=== PATIENT | female | born 1935 | race Caucasian/White ===

== ENCOUNTER 2019-03-21 18:30 | Inpatient (IN) | payer MEDICAID, MEDICARE ==
[~2019-03-21] VITALS: Ht 170.2 cm; Wt 75.0 kg
[2019-03-21 19:04] LABS: HEMATOCRIT 27.7 % (36.0-47.0); MEAN CORPUSCULAR HEMOGLOBIN 21.3 pg (27.0-33.0); MEAN CORPUSCULAR HGB CONC 28.9 g/dl (32.0-36.5); MEAN CORPUSCULAR VOLUME 73.7 fl (80.0-96.0); PLATELET COUNT, AUTOMATED 596 10^3/uL (150-450); RED BLOOD COUNT 3.76 10^6/uL (4.00-5.40); WHITE BLOOD COUNT 7.2 10^3/uL (4.0-10.0)
[2019-03-21 19:22] LABS: ANISOCYTOSIS 1+; HYPOCHROMASIA 2+; LYMPHOCYTES 18 % (16-44); METAMYELOCYTES 1 % (0-0); MONOCYTES 2 % (0-5); NEUTROPHILS 62 % (28-66); POIKILOCYTOSIS 2+
[2019-03-21 19:23] LABS: MICROCYTOSIS 1+; POLYCHROMASIA 1+; SCHISTOCYTES 1+
[2019-03-21 19:24] LABS: ALBUMIN 2.1 GM/DL (3.2-5.2); ALT/SGPT 20 U/L (12-78); BILIRUBIN,DIRECT 0.2 MG/DL (0.0-0.2); BILIRUBIN,TOTAL 0.4 MG/DL (0.2-1.0); BLOOD UREA NITROGEN 20 MG/DL (7-18); CALCIUM LEVEL 8.6 MG/DL (8.8-10.2); CARBON DIOXIDE LEVEL 19 MEQ/L (21-32); CHLORIDE LEVEL 106 MEQ/L (98-107); CREATININE FOR GFR 1.34 MG/DL (0.55-1.30); GLOMERULAR FILTRATION RATE 40.4 (>32); GLUCOSE, FASTING 110 MG/DL (70-100); LIPASE 185 U/L (73-393); PLATELET ESTIMATE INCREASED (NORMAL); POTASSIUM SERUM 3.4 MEQ/L (3.5-5.1); SODIUM LEVEL 141 MEQ/L (136-145); TOTAL PROTEIN 6.6 GM/DL (6.4-8.2)
[2019-03-21 19:25] LABS: OVALOCYTES 1+
[2019-03-21] MEDS ORDERED: NS 2,250 ML in IV 1 EA IV ONE (20:00)
[2019-03-21] MEDS ORDERED: ISOVUE-370 76% 100ML VIAL (Q9967) As Ordered ONE (20:04)
[2019-03-21] MEDS ORDERED: ONDANSETRON 4MG/2ML VIAL (J2405) IV ONE ×2 (20:15→22:00)
[2019-03-21 20:34] LABS: INR 1.33; PROTHROMBIN TIME 16.2 SECONDS (11.8-14.0)
[2019-03-21 20:35] LABS: PARTIAL THROMBOPLASTIN TIME 26.6 SECONDS (25.0-38.4)
[2019-03-21 20:43] LABS: CK-MB VALUE MASS 1.2 NG/ML (<3.6); CPK CREATINE PHOSPHOKINASE 64 U/L (26-192); MB/CK RELATIVE INDEX 1.88 (< OR =4); NT-PRO BNP 630 PG/ML (<450); TROPONIN I < 0.02 NG/ML (< 0.10)
[2019-03-21] MEDS ORDERED: PIPERACILLIN/TAZOBACTAM SOD 3.375 GM in D5W MINI-BAG PLUS 50 ML IV ONE (21:00)
--- NOTE | 2019-03-21 21:06 | REPVR ---
PROCEDURE INFORMATION: Exam: CT Angiography Chest With Contrast Exam date and time: 03/21/2019 8:20 PM Clinical history: 83 years old, female; Other: Hypotension; Additional info: Abd pain, hypotension, ? aaa TECHNIQUE: Imaging protocol: Computed tomographic angiography of the chest with intravenous contrast. 3D rendering: MIP reconstructed images were created and reviewed. Radiation optimization: All CT scans at this facility use at least one of these dose optimization techniques: automated exposure control; mA and/or kV adjustment per patient size (includes targeted exams where dose is matched to clinical indication); or iterative reconstruction. Contrast material: ISOVUE 370; Contrast volume: 100 ml; Contrast route: IV; COMPARISON: No relevant prior studies available. FINDINGS: Pulmonary arteries: Normal. No pulmonary emboli. Aorta: Unremarkable. No aortic aneurysm. No aortic dissection. Lungs: Mild bibasilar atelectasis. No air space consolidation or masses. Airways are clear. Pleural space: Large right pleural effusion and small left pleural effusion. Heart: Unremarkable. No cardiomegaly. No pericardial effusion. Mediastinum: Moderate sized hiatal hernia with some reflux fluid in the esophagus. Lymph nodes: Unremarkable. No enlarged lymph nodes. Bones/joints: Unremarkable. No acute fracture. Soft tissues: Unremarkable. IMPRESSION: 1. Large right pleural effusion and smaller left pleural effusion. 2. Moderate size hiatal hernia with reflux fluid in the esophagus. Electronically signed by: Burt Leonard On 03/21/2019 21:06:52 PM
[2019-03-21] MEDS ORDERED: fentaNYL 100 MCG/2 ML INJECTION (J3010) IV ONE (21:15)
--- NOTE | 2019-03-21 21:16 | REPVR ---
PROCEDURE INFORMATION: Exam: CT Abdomen And Pelvis With Contrast Exam date and time: 03/21/2019 8:20 PM Clinical history: 83 years old, female; Abdominal pain; Generalized; Additional info: Abd pain, hypotension, ? aaa TECHNIQUE: Imaging protocol: Computed tomography of the abdomen and pelvis with intravenous contrast. 3D rendering: MIP reconstructed images were created and reviewed. Radiation optimization: All CT scans at this facility use at least one of these dose optimization techniques: automated exposure control; mA and/or kV adjustment per patient size (includes targeted exams where dose is matched to clinical indication); or iterative reconstruction. Contrast material: ISOVUE 370; Contrast volume: 100 ml; Contrast route: IV; COMPARISON: No relevant prior studies available. FINDINGS: Pleural space: Large right pleural effusion smaller left pleural effusion. Mediastinum: Moderate sized hiatal hernia. Liver: 2.6 cm mass in the left lobe of the liver. No other liver masses. Gallbladder and bile ducts: Multiple calculi in the gallbladder. Mild pericholecystic fluid. Pancreas: There is a large irregular heterogeneous lobulated mass in the head and body of the pancreas measuring 5.9 x 7.2 x 4.7 cm. The pancreatic tail is atrophic. No pancreatic duct dilation. The pancreatic head mass is also not separable from the adjacent duodenum. Spleen: Normal. No splenomegaly. Adrenals: Normal. No mass. Kidneys and ureters: There are cysts in the right kidney. Kidneys are otherwise unremarkable. No hydronephrosis. Stomach and bowel: A portion of the pancreatic head mass extends laterally to the involve a portion of the ascending colon. The involved segment of descending and transverse colon is thickwalled and edematous. No colonic obstruction. No inflammatory changes in the colon. Moderate sigmoid diverticulosis. No duodenal obstruction. Appendix: No evidence of appendicitis. Intraperitoneal space: Moderate ascites in the abdomen and pelvis. Vasculature: The pancreatic head mass appears to encase and may obstruct the portal vein. The mass abuts branches of the celiac and superior mesenteric arteries. The main trunk of both arteries are patent. The gastroduodenal artery is encased and obstructed. At least one small SMA branches also encased by the mass. Aorta is normal size. No aneurysm or dissection. Lymph nodes: Adenopathy in the small bowel mesentery. Bladder: Unremarkable as visualized. Reproductive: Unremarkable as visualized. Bones/joints: There are degenerative changes in the spine and pelvis. Severe central spinal canal stenosis at L3-4. Soft tissues: Unremarkable. IMPRESSION: 1. Large irregular pancreatic head mass encasing branches of the SMA and celiac arteries and the portal vein which may be occluded. The mass also extends laterally to invade the adjacent colon at the hepatic flexure. Associated adenopathy in the mesentery. Possible liver metastasis. 2. Large-volume ascites. 3. Colonic diverticulosis. 4. Cholelithiasis. Cholecystic fluid may be related to ascites or cholecystitis. 5. Severe central spinal stenosis at L3-4. COMMENT: Consistent with the [employer]'s Incidental Findings Committee Report (J Am Pati Radiol 2010): Unless the patient's specific circumstances suggest otherwise, any liver lesion 0.5 cm or less, any cystic kidney lesion less than 1.0 cm, and/or any adrenal lesion 1.0 cm or less not otherwise characterized in this report as possessing suspicious or indeterminate imaging features is/are highly likely to be benign and do not require follow-up imaging or biopsy. Electronically signed by: Burt Leonard On 03/21/2019 21:16:36 PM
[2019-03-21] MEDS: MORPHINE 4 MG/ML 1ML VIAL/SYRINGE (J2270) IV PRN ×2 (22:13→22:44)
[2019-03-21] MEDS ORDERED: NS 1,000 ML IV SCH (22:45)
[2019-03-21] MEDS ORDERED: MORPHINE 4 MG/ML 1ML VIAL/SYRINGE (J2270) IV PRN (22:45)
[2019-03-21] MEDS ORDERED: ONDANSETRON 4MG/2ML VIAL (J2405) IV PRN (22:45)
[2019-03-21] MEDS ORDERED: MAALOX 30 ML SUSP *UDC PO PRN (22:45)
[2019-03-21] MEDS ORDERED: ACETAMINOPHEN TAB 650MG DOSE (2X325MG) PO PRN (22:45)
[2019-03-21] MEDS ORDERED: MOM 30ML SUSPENSION UDC PO PRN (22:45)
--- NOTE | 2019-03-21 23:00 | HPEPDOC ---
General Date of Admission 03/21/19 Date of Service: Mar 21, 2019 Chief Complaint The patient is a 83-year-old female admitted with a reason for visit of N/V. Source: Patient, RN/MD Timing/Duration: Other Severity: Moderate Associated Symptoms: Nausea, Vomiting History of Present Illness 83 years old white female with apparently no past medical history has not seen doctors in decades presented in ER with chief complaints of nausea, vomiting since this afternoon. No other complaints. Patient was found to have a large pancreatic mass with possible liver metastases and will recall in for admission. Patient is poor historian granddaughter who takes care of for is not available. She just left the building Home Medications No Active Prescriptions or Reported Meds Allergies Coded Allergies: No Known Allergies (Verified Allergy, Unknown, 03/21/19) Past Medical History Medical History None Surgical History None Family History Significant Family History: No pertinent family hx Social History * Smoker: Denies Alcohol: Denies Drugs: denies A-FIB/CHADSVASC A-FIB History Current/History of A-Fib/PAF?: No Review of Systems Constitutional: Denies: Chills, Fever, Malaise, Night Sweats, Weakness, Fatigue, Weight Loss, Lethargy, Other Eyes: Denies: Pain, Vision change, Conjunctivae inflammation, Eyelid inflammation, Redness, Other ENT: Denies: Head Aches, Ear Pain, Dysphagia, Sinus Congestion, Post Nasal Drip, Sore Throat, Epistaxis, Other Symptoms Skin: Denies: Rash, Lesions, Jaundice, Bruising, Itching, Dry, Breakdown, Nail Changes, Other Pulmonary: Denies: Dyspnea, Cough, Pleuritic Chest Pain, Other Symptoms Cardiovascular: Denies: Chest Pain, Palpitations, Orthopnea, Paroxysmal Noc. Dyspnea, Edema, Lt Headedness, Other Symptoms Gastrointestinal: Reports: Nausea, Vomiting Genitourinary: Denies: Dysuria, Frequency, Incontinence, Hematuria, Retention, Other Symptoms Hematologic: Denies: Bruising, Bleeding Excessively, Petecchia, Purpura, Enlarged Lymph Nodes, Other Hematologic Endocrine: Denies: Polydipsia, Polyphagia, Polyuria, Heat Intolerance, Cold Intolerance, Other Endocrine Sx Musculoskeletal: Denies: Neck Pain, Back Pain, Shoulder Pain, Arm Pain, Hand Pain, Leg Pain, Foot Pain, Joint Pain, Muscle Pain, Spasms, Other Symptoms Neurological: Denies: Weakness, Numbness, Incoordination, Change in speech, Confusion, Seizures, Other Symptoms Psych: Denies: Mood Normal, Anxiety, Depression, Memory Issues, Thoughts of Self Harm, Anger, Thoughts of Harming Other, Other Psych Physical Examination General Exam: Positive: Alert, Cooperative Eye Exam: Positive: PERRLA, Conjunctiva & lids normal ENT Exam: Positive: Atraumatic, Mucous membr. moist/pink Neck Exam: Positive: Supple Chest Exam: Positive: Clear to auscultation Heart Exam: Positive: Rate Normal, Normal S1 Abdomen Exam: Positive: Normal bowel sounds, Soft, Tenderness (questionable tenderness epigastric area) Extremity Exam: Positive: Normal pulses Skin Exam: Positive: Nl turgor and temperature Neuro Exam: Positive: Normal Gait, Strength at 5/5 X4 ext, Sensation Intact Vital Signs Vital Signs Date Time Temp Pulse Resp B/P (MAP) Pulse Ox O2 Delivery O2 Flow Rate FiO2 03/21/19 22:31 17 03/21/19 21:15 117 105/56 (72) 94 03/21/19 18:41 99.0 Laboratory Data Labs 24H Laboratory Tests 2 03/21/19 18:55: Prothrombin Time 16.2H, Prothromb Time International Ratio 1.33, Activated Partial Thromboplast Time 26.6, Lactic Acid Level 12.4*H 03/21/19 18:56: Nucleated Red Blood Cells % (auto) 0.0, Neutrophils 62, Band Neutrophils 17H, Lymphocytes (Manual) 18, Monocytes (Manual) 2, Metamyelocytes 1H, Platelet Estimate INCREASED, Polychromasia 1+, Hypochromasia 2+, Poikilocytosis 2+, Anisocytosis 1+, Microcytosis 1+, Ovalocytes 1+, Acanthocytes 1+, Schistocytes 1+, Anion Gap 16, Glomerular Filtration Rate 40.4, Calcium Level 8.6L, Aspartate Amino Transf (AST/SGOT) 35, Alanine Aminotransferase (ALT/SGPT) 20, Alkaline Phosphatase 177H, Total Bilirubin 0.4, Direct Bilirubin 0.2, Total Creatine Kinase 64, Creatine Kinase MB 1.2, Creatine Kinase MB Relative Index 1.88, Troponin I < 0.02, MU-Prt-R-Type Natriuretic Peptide 630H, Total Protein 6.6, Albumin 2.1L, Albumin/Globulin Ratio 0.47L, Lipase 185 CBC/BMP Laboratory Tests 10/10/19 18:56 Red Blood Count 3.76 L, Mean Corpuscular Volume 73.7 L, Mean Corpuscular Hemoglobin 21.3 L, Mean Corpuscular Hemoglobin Concent 28.9 L, Red Cell Distribution Width 19.2 H Problems (1) Pancreatic mass Status: Acute Problem Text: 83 years old white female with no past medical history has not seen a doctor in decades came with the chief complaint of nausea, vomiting. On further workup, had a CT of the abdomen done which shows large irregular pancreatic head mass encompassing branches of SMA and celiac arteries and portal vein which is occluded mass also extends laterally to invade the edges sent: At the hepatic flexure. Associated adenopathy and mesenteric. Large volume ascites. Colonic diverticulosis. Cholelithiasis and severe central spinal stenosis . Also, patient seemed to have metastatic disease in the liver on CAT scan Admit patient to MedSurg floor IV fluids normal saline 150 mL per hour Pain management with morphine sulfate 30 per orders Nothing by mouth except meds Patient's prognosis is very poor and terminal Patient will probably benefit from hospice consult as soon as possible Patient was seen by surgical team and recommended medical management secondary to terminal status DNR/DNI. Obtained DVT prophylaxis not needed secondary to terminal condition Bed rest with bathroom privileges Plan / VTE VTE Prophylaxis Ordered?: No VTE Exclusion Mechanical Proph: Other VTE Exclusion Pharmacological: Other (terminal condition and mental condition) AURORA MAYES MD Mar 21, 2019 23:00
[2019-03-22] VITALS: BP 81/50
[2019-03-22 01:11] VITALS: BP 70/40
[2019-03-22] MEDS ORDERED: NS 500 ML IV ONE (01:30)
[2019-03-22 06:15] VITALS: BP 83/49
--- NOTE | 2019-03-22 07:43 | ECGEPIP ---
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
[2019-03-22] MEDS ORDERED: DOCUSATE SODIUM 100 MG CAP PO SCH (09:00)
[2019-03-22] MEDS ORDERED: PREVNAR 13 VACCINE SYRINGE (CPT CODE:90670) IM ONE (09:00)
[2019-03-22] MEDS ORDERED: FLUBLOK(EGG FREE)(QUAD)INFLUENZA VACC 0.5ML SYRINGE (90682)18YRS&OLDER IM ONE (09:00)
--- NOTE | 2019-03-22 11:37 | IPNPDOC ---
Date Seen The patient was seen on 03/22/19. Progress Note SUBJECTIVE: Patient was seen and examined this morning. Patient states that her nausea has subsided somewhat, however, she still continues to have abdominal pain. Patient's family was present and was made aware of the CT findings of an irregular pancreatic mass encompassing the branch of the SMA and celiac arteries and portal vein. Given the patients findings a discussion regarding comfort care has been initiated. The patient and her family state that they have family flying in from [place]. They states that they plan on making a decision at the time. The patient states that currently she has no difficulty breathing or chest pain. She does complain of some mild dysuria and abdominal pain. OBJECTIVE PHYSICAL EXAMINATION: VITAL SIGNS: Please see below. GENERAL: Awake, alert, and oriented. Appears in no acute distress. Lying comfortably in bed. She is pleasant HEENT: Atraumatic, normocephalic. Eyes are nonicteric. Trachea is midline. No JVD CARDIOVASCULAR: Normal S1, S2. Regular, rate and rhythm. No clicks, rubs, or murmurs. RESPIRATORY: Clear vesicular breath sounds bilaterally. Decreased in the bases bilaterally. No wheezes, rhonchi, or rales ABDOMINAL: Soft, nondistended. Tenderness to palpation of the LLQ and RLQ. Positive bowel sounds in all 4 quadrants EXTREMITIES: No edema. Full and equal pulses in bilateral upper and lower extremities NEUROLOGICAL: No focal neurological deficits PSYCHOLOGICAL: Mood and affect appear appropriate LABORATORY DATA, IMAGING STUDIES, MICROBIOLOGY: Please see below. ASSESSMENT AND PLAN: Patient is an 83-year-old female who presented to [facility] with complaint of nausea, vomiting, abdominal pain. Patient recei kimberly a CT of the abdomen and pelvis in the emergency department which revealed a large irregular pancreatic head mass encasing branches of the superior mesenteric artery and celiac arteries in the portal vein with possible occlusion. The mass also extends laterally to the adjacent colon, hepatic flex ure, and associated adenopathy in the mesentery with possible liver metastasis.. Additionally, the patient's found to have large volume ascites. Patient received a CT angiogram which demonstrated a large right-sided pleural effusion with a smaller left-sided pleural effusion and a moderate size hiatal hernia and reflux fluid in the esophagus. General surgery was made aware the case and recommended medical management secondary to terminal status. Patient is currently DNR/DNI. Family and patient has been made aware of the situation and are currently awaiting additional family members arrive from [place] for consideration of comfort measures only care. PROBLEMS: 1. 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 This. Mesenteric artery and celiac arteries as well as the portal vein with possible occlusion. The mass was noted to extend laterally to the adjacent colon, hepatic flexure hepatic flexure, with associated adenopathy in the mesentery and possibly liver metastasis. -This is likely of malignant origin However, this cannot be confirmed without biopsy. -General surgery was contacted when the patient is admitted to the ER and suggested medical management as patient likely has terminal status. At this point. Patient has not determined whether she will be comfort only. Therefore, will recheck out to Gen. surgery for recommendations. 2. CT finding of several small foci of free air in the abdomen, located on the pancreatic head, periportal region, and dome of the liver possibly related to invasion by pancreatic head mass -As stated above patient has possible free air related to colonic invasion from her pancreatic mass. General Surgery will be contacted for recommendations. The patient is likely a poor surgical candidate given the extent of her disease. Patient and her family are aware and are considering TAPPER BIT. -Hospice consult has been placed 3. Lactic Acidosis -Patient is hypotensive, she has a pancreatic head mass surrounding the SMA and celiac arteries. Patient is continued on IV fluids at a rate of 150ml/hr 4. Pleural Effusion -Patient has bilateral pleural effusions possibly secondary to malignancy. She currently denies any shortness of breath. 5. Abdominal Ascites -Likely secondary to possible malignancy. Patient is receiving IV fluids due to hypotension and lactic acidosis. This may worsen her abdominal ascites and pleural effusions. 6. Sepsis -Patient presented with lactic acid of 12.4, hypotension, and evidence of free air in the abdomen. She is been placed on IV NS. Patient received Zosyn in the ER. Patient is currently TAPPER BIT status. DISPOSITION: Patient has an overall poor prognosis. She has a large irregular pancreatic mass with extensive involvement including encasement of the superior mesenteric artery and celiac arteries and portal vein with possible thrombosis. Additionally, there is involvement of the colon at the hepatic flexure with small foci of air suggesting possible perforation. Surgical services is aware the case, however, given the patient's prognosis currently recommends medical management. Patient and her family have asked for comfort measures only care. VS, I&O, 24H, [place] Vital Signs/I&O Vital Signs Date Time Temp Pulse Resp B/P (MAP) Pulse Ox O2 Delivery O2 Flow Rate FiO2 03/22/19 06:15 98.6 101 18 83/49 (60) 99 4.0 03/21/19 23:00 Room Air I&O- Last 24 Hours up to 6 AM 03/22/19 06:00 Intake Total 2100 ml Output Total 100 ml Balance 2000 ml Laboratory Data 24H LABS Laboratory Tests 2 03/21/19 18:55: Prothrombin Time 16.2H, Prothromb Time International Ratio 1.33, Activated Partial Thromboplast Time 26.6, Lactic Acid Level 12.4*H 03/21/19 18:56: Nucleated Red Blood Cells % (auto) 0.0, Neutrophils 62, Band Neutrophils 17H, Lymphocytes (Manual) 18, Monocytes (Manual) 2, Metamyelocytes 1H, Platelet Estimate INCREASED, Polychromasia 1+, Hypochromasia 2+, Poikilocytosis 2+, Anisocytosis 1+, Microcytosis 1+, Ovalocytes 1+, Acanthocytes 1+, Schistocytes 1+, Anion Gap 16, Glomerular Filtration Rate 40.4, Calcium Level 8.6L, Aspartate Amino Transf (AST/SGOT) 35, Alanine Aminotransferase (ALT/SGPT) 20, Alkaline Phosphatase 177H, Total Bilirubin 0.4, Direct Bilirubin 0.2, Total Creatine Kinase 64, Creatine Kinase MB 1.2, Creatine Kinase MB Relative Index 1.88, Tropo ezra I < 0.02, IB-Kew-T-Type Natriuretic Peptide 630H, Total Protein 6.6, Albumin 2.1L, Albumin/Globulin Ratio 0.47L, Lipase 185 03/21/19 20:57: POC pH (Misc Panel) 7.437, POC Base Excess (Misc Panel) -10.0L, POC Saturated Percent O2 (Misc) 91L, POC pO2 (Misc Panel) 57.0L, POC pCO2 (Misc Panel) 21.5L, POC HCO3 (Misc Panel) 14.5L, POC Total CO2 (Misc Panel) 15.0L 03/22/19 00:43: Lactic Acid Followup at 4 Hours 7.4*H CBC/BMP Laboratory Tests 03/21/19 18:56 Red Blood Count 3.76 L, Mean Corpuscular Volume 73.7 L, Mean Corpuscular Hem oglobin 21.3 L, Mean Corpuscular Hemoglobin Concent 28.9 L, Red Cell Distribution Width 19.2 H GME ATTESTATION GME ATTESTATION My faculty preceptor for this patient encounter was physically present during the encounter and was fully available. All aspects of the patient interview, examination, medical decision making process, and medical care plan development were reviewed and approved by the faculty preceptor. The faculty preceptor is aware and concurs with the plan as stated in the body of this note and will attest to such by his/her cosignature. ATTENDING NOTE I, Alex Mcmullen, have independently examined this patient and performed my own physical exam, as well as reviewed the documentation and edited where necessary. I have discussed in detail with the resident / student the findings and plan of treatment as documented by the resident / student and edited their note. I agree with their findings and treatment plan and have edited their documentation. I will continue to follow the patient during this hospital stay. HEDY BENITO DO Mar 22, 2019 11:37 ALEX MCMULLEN MD Mar 26, 2019 17:47
[2019-03-22] MEDS ORDERED: ONDANSETRON 4MG/2ML VIAL (J2405) IV PRN (12:00)
[2019-03-22] MEDS ORDERED: LORazepam 2 MG/ML VIAL (J2060) IV PRN (12:00)
[2019-03-22] MEDS ORDERED: SCOPOLAMINE 1MG TRANSDERMAL PATCH TOP PRN (12:00)
[2019-03-22] MEDS ORDERED: MORP20SO3 PO ×3 (13:48→14:14)
[2019-03-22] MEDS ORDERED: LORA0.5T5 PO ×3 (13:48→14:14)
[2019-03-22] MEDS ORDERED: ACET1TAB55 PO ×3 (13:48→14:14)
[2019-03-22] MEDS ORDERED: HYOS125TA PO ×3 (13:48→14:14)
[2019-03-22] MEDS ORDERED: COLA100C5 PO ×3 (13:48→14:14)
[2019-03-22] MEDS ORDERED: FLEET ENEMA PR PRN (14:00)
[2019-03-22] MEDS ORDERED: ZOFR4TAB16 PO ×2 (14:06→14:14)
--- NOTE | 2019-03-22 15:15 | DS.PDOC ---
Discharge Summary General Date of Admission Mar 21, 2019 at 22:45 Date of Discharge 03/22/19 Attending Physician: ALEX DAVIS MD Discharge Summary PROCEDURES PERFORMED DURING STAY: [None]. ADMITTING DIAGNOSES: 1. 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 Sepsis with lactic acidosis 3. Bilateral pleural effusion 4. Abdominal ascites 5. Free air in the abdomen secondary to colonic invasion by pancreatic head mass DISCHARGE DIAGNOSES: 1. 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 Sepsis with lactic acidosis 3. Bilateral pleural effusion - possibly 2/2 malignant effusion 4. Abdominal ascites - possibly 2/2 malignant ascites 5. Free air in the abdomen - likely secondary to colonic invasion by pancreatic head mass COMPLICATIONS/CHIEF COMPLAINT: Pancreatic Mass. HISTORY OF PRESENT ILLNESS: Patient is an 83-year-old female who presented to [facility] emergency department with complaint of nausea, vomiting, and abdominal pain. She received a CT of the abdomen and pelvis which revealed a large irregular pancreatic head mass encasing branches of the mesenteric artery and celiac arteries and also portal vein with possible occlusion. The mass is found to be extending lateral to the adjacent colon, hepatic flexure, with associated adenopathy in the mesentery and possible liver metastasis. The patients CT findings demonstrated several small foci of free air in the abdomen, located on the pancreatic head periportal region and dome of the liver. Patient was additionally found to have a large volume abdominal ascites as well as bilateral pleural effusions. General surgery was contacted with recommendations to proceed only with medical intervention as patient was a poor surgical candidate. There is far. The patient was found to be tachycardic and hypotensive with an elevated lactic acid. Patient was admitted to hospital service for further evaluation and management On admission the patient was continued on IV fluids due to hypotension. The patient and her family were made aware of the CT findings and prognosis. Patient and her family came to agreement for comfort measure only care and hospice consult was placed and the patient was accepted to hospice DISCHARGE MEDICATIONS: Please see below. ALLERGIES: Please see below. PHYSICAL EXAMINATION ON DISCHARGE: VITAL SIGNS: Please see below. GENERAL: Awake, alert, and oriented. Appears in no acute distress. Lying comfortably in bed. She is pleasant HEENT: Atraumatic, normocephalic. Eyes are nonicteric. Trachea is midline. No JVD CARDIOVASCULAR: Normal S1, S2. Regular, rate and rhythm. No clicks, rubs, or murmurs. RESPIRATORY: Clear vesicular breath sounds bilaterally. Decreased in the bases bilaterally. No wheezes, rhonchi, or rales ABDOMINAL: Soft, nondistended. Tenderness to palpation of the LLQ and RLQ. Positive bowel sounds in all 4 quadrants EXTREMITIES: No edema. Full and equal pulses in bilateral upper and lower extremities NEUROLOGICAL: No focal neurological deficits LABORATORY DATA: Please see below. IMAGING: ADDENDUM REPORT 1 Several small foci of free air also noted in the abdomen, many located around the pancreatic head, periportal region, and dome of the liver, possibly related to invasion of the colon by the pancreatic head mass. THIS REPORT CONTAINS FINDINGS THAT MAY BE CRITICAL TO PATIENT CARE. The findings were verbally communicated via telephone conference with HEDY JONES at 9:22 PM EDT on 03/21/2019. The findings were acknowledged and understood. Electronically signed by: Burt Garcia On 03/21/2019 21:23:11 PM DD: BURT GARCIA MD 03/21/192019 DT: KENNEDY 03/21/192122 DS: SONNY 03/21/192122 PROCEDURE INFORMATION: Exam: CT Abdomen And Pelvis With Contrast Exam date and time: 03/21/2019 8:20 PM Clinical history: 83 years old, female; Abdominal pain; Generalized; Additional info: Abd pain, hypotension, ? aaa TECHNIQUE: Imaging protocol: Computed tomography of the abdomen and pelvis with intravenous contrast. 3D rendering: MIP reconstructed images were created and reviewed. Radiation optimization: All CT scans at this facility use at least one of these dose optimization techniques: automated exposure control; mA and/or kV adjustment per patient size (includes targeted exams where dose is matched to clinical indication); or iterative reconstruction. Contrast material: ISOVUE 370; Contrast volume: 100 ml; Contrast route: IV; COMPARISON: No relevant prior studies available. FINDINGS: Pleural space: Large right pleural effusion smaller left pleural effusion. Mediastinum: Moderate sized hiatal hernia. Liver: 2.6 cm mass in the left lobe of the liver. No other liver masses. Gallbladder and bile ducts: Multiple calculi in the gallbladder. Mild pericholecystic fluid. Pancreas: There is a large irregular heterogeneous lobulated mass in the head and body of the pancreas measuring 5.9 x 7.2 x 4.7 cm. The pancreatic tail is atrophic. No pancreatic duct dilation. The pancreatic head mass is also not separable from the adjacent duodenum. Spleen: Normal. No splenomegaly. Adrenals: Normal. No mass. Kidneys and ureters: There are cysts in the right kidney. Kidneys are otherwise unremarkable. No hydronephrosis. Stomach and bowel: A portion of the pancreatic head mass extends laterally to the involve a portion of the ascending colon. The involved segment of descending and transverse colon is thickwalled and edematous. No colonic obstruction. No inflammatory changes in the colon. Moderate sigmoid diverticulosis. No duodenal obstruction. Appendix: No evidence of appendicitis. Intraperitoneal space: Moderate ascites in the abdomen and pelvis. Vasculature: The pancreatic head mass appears to encase and may obstruct the portal vein. The mass abuts branches of the celiac and superior mesenteric arteries. The main trunk of both arteries are patent. The gastroduodenal artery is encased and obstructed. At least one small SMA branches also encased by the mass. Aorta is normal size. No aneurysm or dissection. Lymph nodes: Adenopathy in the small bowel mesentery. Bladder: Unremarkable as visualized. Reproductive: Unremarkable as visualized. Bones/joints: There are degenerative changes in the spine and pelvis. Severe central spinal canal stenosis at L3-4. Soft tissues: Unremarkable. IMPRESSION: 1. Large irregular pancreatic head mass encasing branches of the SMA and celiac arteries and the portal vein which may be occluded. The mass also extends laterally to invade the adjacent colon at the hepatic flexure. Associated adenopathy in the mesentery. Possible liver metastasis. 2. Large-volume ascites. 3. Colonic diverticulosis. 4. Cholelithiasis. Cholecystic fluid may be related to ascites or cholecystitis. 5. Severe central spinal stenosis at L3-4. COMMENT: Consistent with the [employer]'s Incidental Findings Committee Report (J [employer] Pati [employer]iol 2010): Unless the patient's specific circumstances suggest otherwise, any liver lesion 0.5 cm or less, any cystic kidney lesion less than 1.0 cm, and/or any adrenal lesion 1.0 cm or less not otherwise characterized in this report as possessing suspicious or indeterminate imaging features is/are highly likely to be benign and do not require follow-up imaging or biopsy. Electronically signed by: Burt Garcia On 03/21/2019 21:16:36 PM PROCEDURE INFORMATION: Exam: CT Angiography Chest With Contrast Exam date and time: 03/21/2019 8:20 PM Clinical history: 83 years old, female; Other: Hypotension; Additional info: Abd pain, hypotension, ? aaa TECHNIQUE: Imaging protocol: Computed tomographic angiography of the chest with intravenous contrast. 3D rendering: MIP reconstructed images were created and reviewed. Radiation optimization: All CT scans at this facility use at least one of these dose optimization techniques: automated exposure control; mA and/or kV adjustment per patient size (includes targeted exams where dose is matched to clinical indication); or iterative reconstruction. Contrast material: ISOVUE 370; Contrast volume: 100 ml; Contrast route: IV; COMPARISON: No relevant prior studies available. FINDINGS: Pulmonary arteries: Normal. No pulmonary emboli. Aorta: Unremarkable. No aortic aneurysm. No aortic dissection. Lungs: Mild bibasilar atelectasis. No air space consolidation or masses. Airways are clear. Pleural space: Large right pleural effusion and small left pleural effusion. Heart: Unremarkable. No cardiomegaly. No pericardial effusion. Mediastinum: Moderate sized hiatal hernia with some reflux fluid in the esophagus. Lymph nodes: Unremarkable. No enlarged lymph nodes. Bones/joints: Unremarkable. No acute fracture. Soft tissues: Unremarkable. IMPRESSION: 1. Large right pleural effusion and smaller left pleural effusion. 2. Moderate size hiatal hernia with reflux fluid in the esophagus. Electronically signed by: Burt Garcia On 03/21/2019 21:06:52 PM PROGNOSIS: Poor ACTIVITY: [As tolerated]. DIET: As tolerated DISCHARGE PLAN:. Patient is discharged to hospice for comfort measures only care DISPOSITION: [address] [place] [address] Medical Facility. DISCHARGE CONDITION: [Stable]. TIME SPENT ON DISCHARGE: 40 minutes. Vital Signs/I&Os Vital Signs Date Time Temp Pulse Resp B/P (MAP) Pulse Ox O2 Delivery O2 Flow Rate FiO2 03/22/19 09:00 4.0 03/22/19 06:15 98.6 101 18 83/49 (60) 99 03/21/19 23:00 Room Air I&O- Last 24 Hours up to 6 AM 03/22/19 06:00 Intake Total 2100 ml Output Total 100 ml Balance 2000 ml Laboratory Data Labs 24H Laboratory Tests 2 03/21/19 18:55: Prothrombin Time 16.2H, Prothromb Time International Ratio 1.33, Activated Partial Thromboplast Time 26.6, Lactic Acid Level 12.4*H 03/21/19 18:56: Nucleated Red Blood Cells % (auto) 0.0, Neutrophils 62, Band Neutrophils 17H, Lymphocytes (Manual) 18, Monocytes (Manual) 2, Metamyelocytes 1H, Platelet Estimate INCREASED, Polychromasia 1+, Hypochromasia 2+, Poikilocytosis 2+, Anisocytosis 1+, Microcytosis 1+, Ovalocytes 1+, Acanthocytes 1+, Schistocytes 1+, Anion Gap 16, Glomerular Filtration Rate 40.4, Calcium Level 8.6L, Aspartate Amino Transf (AST/SGOT) 35, Alanine Aminotransferase (ALT/SGPT) 20, Alkaline Phosphatase 177H, Total Bilirubin 0.4, Direct Bilirubin 0.2, Total Creatine Kinase 64, Creatine Kinase MB 1.2, Creatine Kinase MB Relative Index 1.88, Troponin I < 0.02, [id number]-[id number]-Type Natriuretic Peptide 630H, Total Protein 6.6, Albumin 2.1L, Albumin/Globulin Ratio 0.47L, Lipase 185 03/21/19 20:57: POC pH (Misc Panel) 7.437, POC Base Excess (Misc Panel) -10.0L, POC Saturated Percent O2 (Misc) 91L, POC pO2 (Misc Panel) 57.0L, POC pCO2 (Misc Panel) 21.5L, POC HCO3 (Misc Panel) 14.5L, POC Total CO2 (Misc Panel) 15.0L 03/22/19 00:43: Lactic Acid Followup at 4 Hours 7.4*H CBC/BMP Laboratory Tests 03/21/19 18:56 Red Blood Count 3.76 L, Mean Corpuscular Volume 73.7 L, Mean Corpuscular Hemo globin 21.3 L, Mean Corpuscular Hemoglobin Concent 28.9 L, Red Cell Distribution Width 19.2 H Discharge Medications Scheduled Docusate Sodium (Colace) 100 Mg Capsule, 100 MG PO BID Ondansetron HCl (Zofran) 4 Mg Tablet, 1 TAB PO TID Scheduled PRN Acetaminophen (Acetaminophen) 325 Mg Tablet, 650 MG PO Q6HP PRN for PAIN OR FEVER Hyoscyamine Sulfate (Hyoscyamine Sulfate) 0.125 Mg Tab.subl, 0.125 MG PO Q4HP PRN for TERMINAL SECRETIONS Use sublingually if unable to swallow Lorazepam (Lorazepam) 0.5 Mg Tablet, 0.5 MG PO Q4HP PRN for ANXIETY/AGITATION Use sublingually if unable to swallow Morphine Sulfate (Morphine Sulfate) 100 Mg/5 Ml Solution, 0.25-1 ML PO Q2H PRN for PAIN OR DYSPNEA Use sublingually if unable to swallow Allergies Coded Allergies: No Known Allergies (Verified Allergy, Unknown, 03/21/19) GME ATTESTATION GME ATTESTATION My faculty preceptor for this patient encounter was physically present during the encounter and was fully available. All aspects of the patient interview, examination, medical decision making process, and medical care plan development were reviewed and approved by the faculty preceptor. The faculty preceptor is aware and concurs with the plan as stated in the body of this note and will attest to such by his/her cosignature. ATTENDING NOTE I, Alex Davis, have independently examined this patient and performed my own physical exam, as well as reviewed the documentation and edited where necessary. I have discussed in detail with the resident / student the findings and plan of treatment as documented by the resident / student and edited their note. I agree with their findings and treatment plan and have edited their documentation. I will continue to follow the patient during this hospital stay. Time spent on discharge: - 40 minutes HEDY BENITO DO Mar 22, 2019 15:14 ALEX DAVIS MD Mar 22, 2019 15:23
== END 2019-03-22 14:45 | disposition hospice, inpatient (51) | DRG 871 ==
LOC: M ED 18:30 → EDBD 18:30 → M ED INP 22:45 → M MS5PR 23:50
PROVIDERS: ADMIT Internal Medicine; ATTEND Internal Medicine
DX: A41.9 Sepsis, unspecified organism (principal); K63.1 Perforation of intestine (nontraumatic); C25.0 Malignant neoplasm of head of pancreas; C78.5 Secondary malignant neoplasm of large intestine and rectum; C78.7 Secondary malignant neoplasm of liver and intrahepatic bile duct; R18.0 Malignant ascites; C78.6 Secondary malignant neoplasm of retroperitoneum and peritoneum; E87.2 Acidosis; I87.1 Compression of vein; Z51.5 Encounter for palliative care; Z66 Do not resuscitate